=== PATIENT | female | born 1985 | race Hispanic/Latino ===

== ENCOUNTER 2017-09-17 03:41 | Inpatient (IN) | payer MEDICAID, OTHER, SELFPAY ==
[2017-09-17] MEDS ORDERED: LR / Pitocin 40 units/1000 ml 1,000 ML ONE (03:49)
[2017-09-17] MEDS ORDERED: Lidocaine 1% (PF) 30 ML VIAL ONE (03:49)
[2017-09-17 04:04] VITALS: BMI 42.3
[2017-09-17] MEDS ORDERED: Ibuprofen 800 MG TAB PO PRN (04:39)
[2017-09-17] MEDS ORDERED: Misoprostol 200 MCG TAB PR PRN (04:39)
[2017-09-17] MEDS ORDERED: Ondansetron HCl/PF 4 MG/2 ML Vial IVP PRN ×2 (04:39→05:50)
[2017-09-17] MEDS ORDERED: Lidocaine 1% (PF) 30 ML VIAL SC PRN (04:39)
[2017-09-17] MEDS ORDERED: LR / Pitocin 40 units/1000 ml 1,000 ML IV PRN (04:39)
[2017-09-17] MEDS ORDERED: Promethazine HCl 25 MG/ML VIAL IM PRN ×2 (04:39→05:50)
[2017-09-17] MEDS ORDERED: Lactated Ringer's 1,000 ML IV SCH (04:45)
[2017-09-17 04:53] LABS: Hemoglobin 12.5 g/dL (12.0-16.0); Mean Corpuscular HGB CONC 33.5 g/dL (32.0-36.0); Mean Corpuscular Hemoglobin 28.9 pg (27.0-31.0); Mean Corpuscular Volume 86.3 fl (81.0-99.0); Mean Platelet Volume 8.8 fL (7.4-10.4); Platelet Count 206 thou/uL (130-400); RBC Distribution Width 15.1 % (11.5-14.5); Red Blood Cell (RBC) Count 4.32 mill/uL (4.20-5.40); White Blood Cell (WBC) Count 9.9 thou/uL (4.8-10.8)
[2017-09-17] MEDS ORDERED: Fentanyl 4 mcg/Marc 0.1% Cadd 100 ML ONE (05:16)
[2017-09-17 05:21] LABS: HBSAg Index 0.23 S/CO (0-0.99); Hep B Surf Ag Non-Reactive S/CO (NonReactive)
[2017-09-17] MEDS ORDERED: Naloxone HCl 0.4 mg/ml Vial IVP PRN ×2 (05:50)
[2017-09-17] MEDS ORDERED: Eucerin (Mineral Oil/Petrolatum,White) 30 gm Jar TOP PRN (05:50)
[2017-09-17] MEDS ORDERED: diphenhydrAMINE 50 MG/ML VIAL IVP PRN (05:50)
[2017-09-17] MEDS ORDERED: ePHEDrine/0.9% NaCl/PF SYRINGE 50 mg/10 ml SLOW IVP PRN (05:50)
[2017-09-17] MEDS ORDERED: Acetaminophen 325 MG TAB PO PRN (05:50)
[2017-09-17] MEDS ORDERED: Lactated Ringer's 500 ML IV PRN (05:50)
[2017-09-17] MEDS ORDERED: Fentanyl 4mcg/Marcaine 0.1% Cassette 100 ML EPIDURAL SCH (06:00)
[2017-09-17] MEDS ORDERED: Communication Order-Pharmacy FS SCH (06:00)
[2017-09-17 06:43] LABS: Syphilis Antibody Nonreactive (Nonreactive); Syphilis Antibody Index 0.06 S/CO (<1.00 Non-Reactive)
[2017-09-17] MEDS ORDERED: Lanolin Ointment 7 GM TUBE TOP PRN (09:34)
[2017-09-17] MEDS ORDERED: Adacel (T-DAP) 0.5 ML VIAL IM ONE (09:34)
[2017-09-17] MEDS ORDERED: Prenatal Vitamin 1 TAB PO SCH ×2 (09:34→11:00)
[2017-09-17] MEDS ORDERED: Docusate Calcium (SURFAK) 240 MG CAP PO SCH ×2 (09:34→11:00)
[2017-09-17] MEDS ORDERED: Milk Of Magnesia 30 ML UDCUP PO PRN (09:34)
[2017-09-17] MEDS ORDERED: Preparation H Ointment 28 GM TUBE PR PRN (09:34)
[2017-09-17] MEDS ORDERED: LR / Pitocin 40 units/1000 ml 1,000 ML IV SCH (09:34)
[2017-09-17] MEDS ORDERED: Bisacodyl 10 MG SUPP PR PRN (09:34)
[2017-09-17] MEDS: Ferrous Sulfate 325 MG TAB PO SCH ×2 (09:48→18:18)
--- NOTE | 2017-09-17 10:44 | PDOC.OPDEL ---
OB Operative/Delivery Note Delivery Dr/Surgeon: Dr. Radames Aguilera Assist: Attending: Dr. Salazar Pre-Delivery Diagnosis: active labor Procedure/Post Delivery Dx: spontaneous vaginal delivery Weeks gestation: 39 (39.6) Anesthesia: epidural - Findings A Sex: female - 1 min: 9 - 5 min: 9 - Additional Findings/Plan Placenta delivered: spontaneous Repaired Obstetrical Laceration: none Estimated blood loss: 250 Post delivery plan: routine recovery
[2017-09-17] MEDS: Prenatal Vitamin 1 TAB PO SCH (13:33)
[2017-09-17] MEDS: Ibuprofen 800 MG TAB PO SCH ×2 (14:29→22:22)
--- NOTE | 2017-09-17 20:22 | PDOC.EVN ---
Event Note - Event Note Event Note: Day 0 Bed check Subjective: No new issues Vitals reviewed...wnl Assessment: Day 0 Plan: Routine care
[2017-09-17] MEDS: Docusate Calcium (SURFAK) 240 MG CAP PO SCH (22:22)
[2017-09-18] MEDS: Ibuprofen 800 MG TAB PO SCH ×3 (05:15→21:31)
[2017-09-18 05:58] LABS: Hemoglobin 11.1 g/dL (12.0-16.0); Mean Corpuscular HGB CONC 32.8 g/dL (32.0-36.0); Mean Corpuscular Hemoglobin 28.7 pg (27.0-31.0); Mean Corpuscular Volume 87.5 fl (81.0-99.0); Mean Platelet Volume 8.3 fL (7.4-10.4); Platelet Count 184 thou/uL (130-400); RBC Distribution Width 15.1 % (11.5-14.5); Red Blood Cell (RBC) Count 3.87 mill/uL (4.20-5.40); White Blood Cell (WBC) Count 7.9 thou/uL (4.8-10.8)
--- NOTE | 2017-09-18 07:02 | PDOC.PP ---
Post Progress Note Post Day #: 1 Subjective: Doing well PO intake tolerated: yes Flatus: yes Ambulation: yes Vital Signs (12 hours) Temp Pulse Resp BP BP 09/18/17 05:00 98.6 F 76 16 90/50 L 09/18/17 00:00 98.4 F 77 16 116/59 L 09/17/17 20:00 97.8 F 86 16 119/70 Weight Weight 217 lb - Physical Examination General: NAD Cardiovascular: no m/r/g Respiratory: clear to auscultation bilaterally Abdominal: + bowel sounds Extremities: negative homans (B) Skin: CS incision dry & intact Neurological: no gross focal deficits Psychiatric: A&Ox3 Result Diagrams: 09/18/17 05:18 Additional Labs: Post Labs Hep Bs Antigen Non-Reactive S/CO (NonReactive) 09/17/17 04:03 (1) Vaginal delivery Code(s): O80 - ENCOUNTER FOR FULL-TERM UNCOMPLICATED DELIVERY Status: Acute (2) Multigravida Code(s): Z64.1 - PROBLEMS RELATED TO MULTIPARITY Status: Acute - Assessment/Plan Plan: 1. Multip, postpatum day 1 2. Doing well 3. Await resident team for possible discharge this PM if able
[2017-09-18] MEDS: Ferrous Sulfate 325 MG TAB PO SCH ×3 (08:55→17:48)
[2017-09-18] MEDS: Prenatal Vitamin 1 TAB PO SCH ×2 (08:55→08:56)
[2017-09-18] MEDS: Docusate Calcium (SURFAK) 240 MG CAP PO SCH ×2 (08:55→21:31)
[2017-09-19] MEDS: Ibuprofen 800 MG TAB PO SCH (06:13)
--- NOTE | 2017-09-19 07:00 | PDOC.PP ---
Post Progress Note Post Day #: 2 Subjective: Eating well. Passing gas. Pain well controlled. PO intake tolerated: yes Flatus: yes Ambulation: yes Vital Signs (12 hours) Temp Pulse Resp BP Pulse Ox 09/18/17 20:00 97.6 F 70 20 119/79 100 Weight Weight 98.43 kg - Physical Examination General: NAD Cardiovascular: no m/r/g, RRR Respiratory: clear to auscultation bilaterally, non-labored breathing Abdominal: + bowel sounds, lochia (wnl), no distention, appropriately TTP Fundus firm & at: below umbilicus Extremities: negative homans (B) Skin: no rash Neurological: no gross focal deficits Psychiatric: A&Ox3, normal affect Result Diagrams: 09/18/17 05:18 Additional Labs: Post Labs Hep Bs Antigen Non-Reactive S/CO (NonReactive) 09/17/17 04:03 (1) Vaginal delivery Code(s): O80 - ENCOUNTER FOR FULL-TERM UNCOMPLICATED DELIVERY Status: Acute Comment: 32 year old that delivered a TAGA female infant at 39.6 wks on 09/17/17 @ 07:34 via . No complications after delivery. Routine care. Stable for discharge home. Desires tubal ligation. Will need to discuss this with PCP at next PNC visit. will follow with Shannon Patino at [facility]. <Alice Vines - Last Filed: 09/19/17 06:56> Weight Weight 217 lb Result Diagrams: 09/18/17 05:18 Additional Labs: Post Labs Hep Bs Antigen Non-Reactive S/CO (NonReactive) 09/17/17 04:03 <Aidan Wells - Last Filed: 09/19/17 08:21> Attending Addendum - Attending Addendum I personally evaluated the patient and discussed the management with Dr. Vines I agree with the History, Examination, Assessment and Plan documented above with any addition or exceptions noted below. <Aidan Wells - Last Filed: 09/19/17 08:21>
--- NOTE | 2017-09-19 08:04 | DIS ---
DATE OF ADMISSION: 09/16/2017 DATE OF DISCHARGE: 09/19/2017 ADMITTING DIAGNOSIS: Active labor. DISCHARGE DIAGNOSIS: Active labor. PROCEDURE: Term spontaneous vaginal delivery. CONSULTATIONS: None. HOSPITAL COURSE: Patient is a 32-year-old female who presented in active labor at term and subsequen tly had a term spontaneous vaginal delivery. For complete details, please refer to the dictated deli very note. Her course has been complicated by an infant needing bili lights. Today on po stpartum day #2, the patient reports she is tolerating p.o., voiding on her own, having decreased loc hia and good pain control. PHYSICAL EXAMINATION: VITAL SIGNS: Today, blood pressure is 119/79, temperature 97.6, pulse 70, respiratory rate 20, satti ng 100% on room air. GENERAL: She appears to be in no acute distress. She is alert and oriented, calm and pleasant to in teract with. Fundus is firm. EXTREMITIES: Nontender with some bilateral edema that is symmetrical. LABORATORY DATA: Her post-delivery hemoglobin is 11.1, hematocrit 33.9, platelets 194,000. DISCHARGE INSTRUCTIONS: The patient will be discharged to home. She has instructions to follow up w [facility] in 2 weeks. She will have [id number] ibuprofen as needed for pain and has been given instruction to seek medical attention sooner if she experiences fever, increasing pain or bleeding.
[2017-09-19 08:39] VITALS: BP 113/71; TEMP 98.3
[2017-09-19] MEDS: Prenatal Vitamin 1 TAB PO SCH ×2 (09:17→09:18)
[2017-09-19] MEDS: Docusate Calcium (SURFAK) 240 MG CAP PO SCH (09:17)
[2017-09-19] MEDS: Ferrous Sulfate 325 MG TAB PO SCH ×2 (09:17→09:18)
== END 2017-09-19 13:30 | disposition home or self-care (01) | DRG 775 ==
LOC: L&D/OP 03:41 → L&D 04:06 → 3SW 09:17
PROVIDERS: ADMIT Obstetrics & Gynecology; ATTEND Obstetrics & Gynecology
PROC: 10E0XZZ Delivery of Products of Conception, External Approach (ICD-10-PCS; principal; 2017-09-17)
DX: O76 Abnormality in fetal heart rate and rhythm complicating labor and delivery (principal); O77.0 Labor and delivery complicated by meconium in amniotic fluid; Z37.0 Single live birth; Z3A.39 39 weeks gestation of pregnancy
CPT/HCPCS: 36415; 51702; 85027; 86780; 87340; 99285; J2001

== ENCOUNTER 2025-06-19 23:15 | Emergency (ER) | payer MEDICAID, SELFPAY ==
[2025-06-19 23:35] LABS: #Basophils Less than 0.03 10x3/uL (0.0-0.2); #Eosinophils 0.29 10x3/uL (0.0-0.7); #Monocytes 0.77 10x3/uL (0.11-0.59); #Neutrophils 7.70 10x3/uL (1.40-6.50); %Basophils 0.2 % (0.0-1.0); %Eosinophils 2.5 % (0.0-10.0); %Lymphocytes 23.9 % (21.0-51.0); %Monocytes 6.7 % (0.0-10.0); %Neutrophils 66.4 % (42.0-75.0); Hematocrit 37.9 % (36.0-47.0); Hemoglobin 11.9 g/dL (12.0-16.0); Mean Corpuscular Hemoglobin 26.9 pg (27.0-31.0); Mean Corpuscular Volume 85.7 fL (78.0-98.0); Platelet Count 305 10x3/uL (130-400); Red Blood Cell (RBC) Count 4.42 mill/uL (4.20-5.40); White Blood Cell (WBC) Count 11.57 10x3/uL (4.8-10.8)
[2025-06-19 23:58] LABS: Anion Gap 14 mmol/L (10-20); BUN (Urea Nitrogen) 12 mg/dL (7.0-18.7); Calc. Creatinine Clearance 0 mL/min (70-130); Calcium 9.1 mg/dL (7.8-10.44); Carbon Dioxide 23 mmol/L (22-29); Chloride 109 mmol/L (98-107); Glucose 103 mg/dL (70-105); Potassium 3.7 mmol/L (3.5-5.1); Sodium 142 mmol/L (136-145)
[2025-06-20 00:35] LABS: Bacteria/HPF None Seen HPF (None Seen); CAUTI Indications for Culture Pelvic or flank pain; Glucose, Urine (Dipstick) Normal (Negative); Leukocyte Negative Leu/uL (Negative); Protein, Urine (Dipstick) Negative (Neg-Trace); RBC/HPF 0-3 HPF (0-3); Specific Gravity, Urine 1.005 (1.002-1.036); WBC/HPF 0-3 HPF (0-3)
[2025-06-20 00:36] LABS: Urine Culture Reflex No No
[2025-06-20 00:47] LABS: BHCG - Serum Negative (NEGATIVE); Pregs Control Background? CLEAR/WHITE (CLR/WHITE); Pregs Control Bar Appear? YES (CONTROL BAR)
[2025-06-20 00:55] LABS: ALT (SGPT) 43 U/L (Less than 34); AST (SGOT) 34 U/L (11-34); Albumin 4.3 g/dL (3.1-4.5); Alkaline Phosphatase 89 U/L (40-110); Bilirubin, Direct 0.1 mg/dL (0.1-0.3); Bilirubin, Total 0.3 mg/dL (0.3-1.2); Lipase 15 U/L (8-78)
== END 2025-06-20 03:17 | disposition home or self-care (01) ==
LOC: ERS 23:15
DX: R07.9 Chest pain, unspecified (principal)
CPT/HCPCS: 36415; 71045; 80048; 80076; 81001; 83690; 84484; 84703; 85025; 93005; 94760